=== PATIENT | female | born 1985 | race Caucasian/White ===

== ENCOUNTER 2016-06-28 22:21 | Emergency (ER) | payer SELFPAY ==
[~2016-06-28] VITALS: Ht 167.6 cm; Wt 95.5 kg
[2016-06-28 22:26] VITALS: Ht 167.6 cm; Wt 95.5 kg
--- NOTE | 2016-06-29 01:56 | RADRPT ---
PROCEDURE: XR Chest. CLINICAL INDICATION: Fever and cough. TECHNIQUE: Single frontal chest x-ray. COMPARISON: None. FINDINGS: The cardiomediastinal silhouette is unremarkable. The lungs are clear. No focal infiltrate is seen. There is no pleural effusion. There is no pneumothorax. The osseous structures are unremarkable. IMPRESSION: 1. No active disease. RPTAT: HMVK .Kyaw Macario MD, MD Date Time Electronically viewed and signed by .Kyaw Macario MD, on 06/29/2016 01:56 .K/
[2016-06-29] MEDS ORDERED: IBUP-1542 PO (02:10)
[2016-06-29] MEDS ORDERED: ALBU8.5H3 INH (02:11)
[2016-06-29] MEDS ORDERED: AZIT250T94 PO (02:16)
[2016-06-29] MEDS ORDERED: BENZ100C70 PO (02:16)
--- NOTE | 2016-06-29 04:25 | ERD ---
ER Documentation Chief Complaint Date/Time DATE: 06/29/16 TIME: 04:17 Chief Complaint cough and congestion x1 day HPI Patient is a 31-year-old female past medical history of pneumonia who presents to the emergency department with a cough and nasal congestion 3 days. Patient states that her cough is productive in nature with yellow phlegm production. Patient denies any fevers but does report chills. Patient states that she has nasal congestion and rhinorrhea. Patient denies any chest pain or shortness of breath. Patient states she also has some clear watery eyes. Patient denies any abdominal pain, nausea, vomiting, diarrhea. Patient has been taking Benadryl for symptoms with minimal alleviation. Patient denies receiving the flu vaccine this year. Patient denies any throat pain, ear pain, headaches or loss of consciousness. No recent travel. No sick contacts. ROS All systems reviewed and are negative except as per history of present illness. Medications Home Meds Active Scripts Benzonatate* (Tessalon Perle*) 100 Mg Capsule, 100 MG PO Q8H Y for COUGH, #30 CAP Prov:ANETA FOWLER PA-C 06/29/16 Azithromycin* (Zithromax*) 250 Mg Tablet, 250 MG PO .ZPACK DIRECTED, #6 TAB TAKE 500 MG (2 TABS) THE FIRST DAY THEN 250 MG (1 TAB) DAYS 2-5 Prov:ANETA FOWLER PA-C 06/29/16 Albuterol Sulfate* (Proair HFA*) 8.5 Gm Hfa.aer.ad, 2 PUFF INH Q4H Y for WHEEZING AND SOB, #1 INHALER Prov:ANETA FOWLER PA-C 06/29/16 Ibuprofen* (Motrin*) 600 Mg Tab, 600 MG PO Q6, #30 TAB Prov:ANETA FOWLER PA-C 06/29/16 Allergies Allergies: Coded Allergies: diphenhydramine (Verified Allergy, Intermediate, increased itching, ) Uncoded Allergies: NSAIDS (Allergy, Unknown, 06/28/16) PMhx/Soc History of Surgery: Yes (sinus sx as a child) Anesthesia Reaction: No Hx Neurological Disorder: No Hx Respiratory Disorders: No Hx Cardiac Disorders: No Hx Psychiatric Problems: No Hx Miscellaneous Medical Probl: Yes ("prediabetic") Hx Alcohol Use: Yes (occasional) Hx Substance Use: No Hx Tobacco Use: No FmHx Family History: No diabetes Physical Exam Vitals Vital Signs Date Time Temp Pulse Resp B/P Pulse Ox O2 Delivery O2 Flow Rate FiO2 06/28/16 22:26 98.7 107 22 118/76 98 Physical Exam GENERAL: Well-developed, well-nourished female. Appears in no acute distress. No abdominal retractions, no nasal flaring, no tripoding. Patient is speaking in full sentences. HEAD: Normocephalic, atraumatic. No deformities or ecchymosis. EYE: Pupils equal, round, and reactive to light. EOMs intact. No conjunctival erythema. No eye discharge. ENT: External ear without any masses or tenderness. Auditory canals clear bilaterally. TM visualized bilaterally, non-erythematous, non-bulging. Nasal mucosa pink with no discharge. Oropharynx is pink without any tonsillar erythema or exudates. No uvula deviation. No kissing tonsils. NECK: Supple. No meningismus. Normal ROM of the neck. LUNG: Clear to auscultation bilaterally. No rhonchi, wheezing, rales or coarse breath sounds. HEART: Regular rate and rhythm. No murmurs, rubs or gallops. BACK: No midline tenderness. EXTREMITES: Equal pulses bilaterally. No peripheral clubbing, cyanosis or edema. No unilateral leg swelling. NEUROLOGIC: Alert and oriented to person, place and time. Moving all four extremities. 5/5 strength in all extremities. Normal speech. Steady gait. Negative Brudzinski sign sign. Negative Kernig sign. SKIN: Normal color. Warm and dry. No rashes or lesions. Procedures/MDM ED COURSE: The patient was stable throughout ED course. I kept the patient and/or family informed of laboratory and diagnostic imaging results throughout the ED course. DIAGNOSTIC IMAGING: Read by radiologist. DIAGNOSTIC IMAGING REPORT Patient: LISA LINDA : 1985 Age: 31 Sex: F [id number] DOS: 06/29/16 0052 Ordering MD: ANETA FOWLER PA-C Location: FTE Room/Bed: PROCEDURE: XR Chest. CLINICAL INDICATION: Fever and cough. TECHNIQUE: Single frontal chest x-ray. COMPARISON: None. FINDINGS: The cardiomediastinal silhouette is unremarkable. The lungs are clear. No focal infiltrate is seen. There is no pleural effusion. There is no pneumothorax. The osseous structures are unremarkable. IMPRESSION: 1. No active disease. RPTAT: HMVK .Kyaw Macario MD, MD Date Time Electronically viewed and signed by .Kyaw Macario MD, on 06/29/2016 01:56 .K/ CC: ANETA FOWLER PA-C MEDICAL DECISION MAKING: This is a 31-year-old female past medical history of pneumonia who presents with cough and nasal congestion 3 days. Vital signs were reviewed. Patient was afebrile. Patient was not hypoxic. ENT exam was normal. Lung Exam was normal. Chest x-ray was unremarkable. Given these findings, the patient's presentation is most consistent with viral URI. I have a much lower clinical concern for bacterial infections including pneumonia, meningitis, sinusitis, otitis externa , acute otitis media, strep pharyngitis, epiglottitis or peritonsillar abscess. Patient requested a prescription of antibiotics given that her "colds often turn into bronchitis or pneumonia." Rise the patient at this time I will provide her with a prescription of Z-Omi however I will be writing on the Z-Omi not to be filled for at least 4 days. Patient may only fill Z-Omi after 2016. Patient understands and is agreeable with this plan. PRESCRIPTIONS: Ibuprofen, Z-Omi, Tessalon Perles, albuterol inhaler. DISCHARGE: At this time, patient is stable for discharge and outpatient management. Supportive therapies such as OTC throat lozenges, salt water gurgles, popsicles and jello discussed. I have instructed the patient to follow-up with his/her primary care physician in 1-2 days. I have instructed the patient to promptly return to the ER for any new or worsening symptoms including increased pain, swelling, fever, nausea, vomiting, weakness or difficulty breathing. The patient and/or family expressed understanding of and agreement with this plan. All questions were answered. Home care instructions were provided. Departure Diagnosis: Primary Impression: Viral URI Condition: Stable Patient Instructions: Uri, Viral, No Abx (Adult) Referrals: [facility] YOU HAVE RECEIVED A MEDICAL SCREENING EXAM AND THE RESULTS INDICATE THAT YOU DO NOT HAVE A CONDITION THAT REQUIRES URGENT TREATMENT IN THE EMERGENCY DEPARTMENT. FURTHER EVALUATION AND TREATMENT OF YOUR CONDITION CAN WAIT UNTIL YOU ARE SEEN IN YOUR DOCTORS OFFICE WITHIN THE NEXT 1-2 DAYS. IT IS YOUR RESPONSIBILITY TO MAKE AN APPOINTMENT FOR FOLOW-UP CARE. IF YOU HAVE A PRIMARY DOCTOR --you should call your primary doctor and schedule an appointment IF YOU DO NOT HAVE A PRIMARY DOCTOR YOU CAN CALL OUR PHYSICIAN REFERRAL HOTLINE AT IF YOU CAN NOT AFFORD TO SEE A PHYSICIAN YOU CAN CHOSE FROM THE FOLLOWING [facility] [address] [facility]. [facility] [address] [facility] [address] [facility] [address] [facility] [address] [facility]. [facility] [address] [facility]. [facility] YOU HAVE RECEIVED A MEDICAL SCREENING EXAM AND THE RESULTS INDICATE THAT YOU DO NOT HAVE A CONDITION THAT REQUIRES URGENT TREATMENT IN THE EMERGENCY DEPARTMENT. FURTHER EVALUATION AND TREATMENT OF YOUR CONDITION CAN WAIT UNTIL YOU ARE SEEN IN YOUR DOCTORS OFFICE WITHIN THE NEXT 1-2 DAYS. IT IS YOUR RESPONSIBILITY TO MAKE AN APPOINTMENT FOR FOLOW-UP CARE. IF YOU HAVE A PRIMARY DOCTOR --you should call your primary doctor and schedule and appointment IF YOU DO NOT HAVE A PRIMARY DOCTOR YOU CAN CALL OUR PHYSICIAN REFERRAL HOTLINE AT . IF YOU CAN NOT AFFORD TO SEE A PHYSICIAN YOU CAN CHOSE FROM THE FOLLOWING [facility] INSTITUTIONS: [facility] [address] [place] [address] [facility] [address] [place] [address] [facility] [address] [place] [address] Additional Instructions: Call your primary care doctor TOMORROW for an appointment during the next 1-2 days.See the doctor sooner or return here if your condition worsens before your appointment time. Patient advised to only fill antibiotics prescription after at least 3 days if symptoms persist. Comments At approximately 4 AM on 06/29/16, it was noted the patient was prescribed ibuprofen despite having a NSAIDs allergy. She was attempted to be called however patient did not provide contact phone number. If patient returns to the ED, Patient will be advised to discontinue any ibuprofen prescribed. ANETA FOWLER PA-C Jun 29, 2016 04:25
== END 2016-06-29 02:35 | disposition home or self-care (01) ==
LOC: FTE 22:21
DX: J06.9 Acute upper respiratory infection, unspecified (principal)
CPT/HCPCS: 71010

== ENCOUNTER 2018-04-11 10:38 | Emergency (ER) | payer BC, OTHER ==
[~2018-04-11] VITALS: Ht 162.6 cm; Wt 75.0 kg
[~2018-04-11 10:38] MED LIST: ALBU8.5H8 INH; AZIT250T PO; BENZ-6 PO; IBUP-1542 PO
[2018-04-11 10:45] VITALS: Ht 162.6 cm; Wt 75.0 kg
[2018-04-11] MEDS ORDERED: KETOROLAC 15 MG INJ IV STA (11:01)
[2018-04-11] MEDS ORDERED: SOD CHLORIDE 0.9% 1,000 ML IV STA (11:01)
[2018-04-11] MEDS ORDERED: ONDANSETRON 4 MG INJ IV STA (11:01)
[2018-04-11] MEDS ORDERED: ASPIRIN 81 MG TAB PO STA (11:44)
[2018-04-11] MEDS ORDERED: IOHEXOL 100 ML ONE (11:46)
[2018-04-11] MEDS ORDERED: SOD CHLORIDE 0.9% 100 ML ONE (11:46)
[2018-04-11] MEDS ORDERED: IODIXANOL LOCM 100 ML BTL ONE (11:47)
--- NOTE | 2018-04-11 11:52 | ERD ---
ER Documentation Chief Complaint Chief Complaint left sided numbness, no weakness noted HPI This is a 32-year-old woman initially triaged as having left-sided paresthesias beginning at work. She also states she felt dizzy and lightheaded and also felt paresthesias to the right face and weakness in the right face, although she stat es her boss witnessed the entire episode and states he denied that she had facial droop despite the sensation she had. She denies weakness in her arms or legs, no loss of consciousness, no complaints of chest pain or shortness of breath. During HPI she denied prior symptoms although it seems she does have a history of migraines and her who is at the bedside states she has had paresthesias in the past. ROS All systems reviewed and are negative except as per history of present illness. Medications Home Meds Discontinued Scripts Benzonatate* (Tessalon Perle*) 100 Mg Capsule, 100 MG PO Q8H PRN for COUGH, #30 CAP Prov:ANETA FOWLER PA-C 06/29/16 Azithromycin* (Zithromax*) 250 Mg Tablet, 250 MG PO .ZPACK DIRECTED, #6 TAB TAKE 500 MG (2 TABS) THE FIRST DAY THEN 250 MG (1 TAB) DAYS 2-5 Prov:ANETA FOWLER PA-C 06/29/16 Albuterol Sulfate* (Proair HFA*) 8.5 Gm Hfa.aer.ad, 2 PUFF INH Q4H PRN for WHEEZING AND SOB, #1 INHALER Prov:ANETA FOWLER PA-C 06/29/16 Ibuprofen* (Motrin*) 600 Mg Tab, 600 MG PO Q6, #30 TAB Prov:ANETA FOWLER PA-C 06/29/16 Allergies Allergies: Coded Allergies: diphenhydramine (Verified Allergy, Intermediate, increased itching, 06/29/16) Uncoded Allergies: NSAIDS (Allergy, Unknown, 06/28/16) PMhx/Soc Obesity, migraine headaches History of Surgery: Yes (sinus sx as a child) Anesthesia Reaction: No Hx Neurological Disorder: No Hx Respiratory Disorders: No Hx Cardiac Disorders: No Hx Psychiatric Problems: No Hx Miscellaneous Medical Probl: Yes ("prediabetic") Hx Alcohol Use: Yes (occasional) Hx Substance Use: No Hx Tobacco Use: No Smoking Status: Never smoker FmHx Family History: No diabetes Physical Exam Vitals Vital Signs Date Temp Pulse Resp B/P (MAP) Pulse Ox O2 O2 Flow FiO2 Time Delivery Rate 04/11/18 97.6 80 18 114/78 100 Room Air 15:00 (90) 04/11/18 78 18 117/80 100 Room Air 12:26 (92) 04/11/18 76 18 122/85 100 Room Air 11:30 (97) 04/11/18 98.0 74 18 127/92 100 10:45 (104) Physical Exam GENERAL: Well-developed, well-nourished, well-hydrated, in no apparent distress, looks nontoxic in appearance HEENT: Moist mucous membranes, pink conjunctiva, no cervical spine tenderness or step-off deformities, no goiter, no jaundice or icterus, extraocular movements intact without pain. No submandibular induration, and no pharyngeal erythema NEURO: Alert and oriented 3, cranial nerves II through XII intact bilaterally, pupils equal round reactive to light, left hand community coordinator for [employer] strength 4/5 compared to 5/5 on the right, positive pronator drift on the left CARDIAC: Regular rate and rhythm, no murmurs rubs or gallops LUNGS: Clear bilaterally no wheezing crackles or stridor ABDOMEN: Soft nontender, no guarding, no rigidity, no rebound, no psoas sign no obturator sign. Normoactive bowel sounds SKIN: Warm and dry to touch, no abrasions, contusions, or hematomas, no lacerations, no ecchymosis, no target lesions, and without ulcers EXTREMITIES: No clubbing cyanosis or edema, calves are bilaterally symmetrical, no Homans sign, no popliteal cord sign. Distal pulses equal and bilateral PSYCH: Normal affect without agitation or irritability Result Diagram: 04/11/18 1111 04/11/18 1111 Results 24 hrs Laboratory Tests Test 04/11/18 11:10 04/11/18 11:11 04/11/18 11:21 Hemoglobin A1c 5.5 % Ethyl Alcohol Level < 10.0 mg/dl White Blood Count 6.3 10^3/ul Red Blood Count 4.31 10^6/ul Hemoglobin 13.4 g/dl Hematocrit 39.4 % Mean Corpuscular Volume 91.4 fl Mean Corpuscular Hemoglobin 31.1 pg Mean Corpuscular 34.0 g/dl Hemoglobin Concent Red Cell Distribution Width 11.6 % Platelet Count 225 10^3/UL Mean Platelet Volume 9.9 fl Immature Granulocytes % 0.200 % Neutrophils % 52.0 % Lymphocytes % 41.1 % Monocytes % 5.5 % Eosinophils % 0.6 % Basophils % 0.6 % Nucleated Red Blood Cells % 0.0 /100WBC Immature Granulocytes # 0.010 10^3/ul Neutrophils # 3.3 10^3/ul Lymphocytes # 2.6 10^3/ul Monocytes # 0.4 10^3/ul Eosinophils # 0.0 10^3/ul Basophils # 0.0 10^3/ul Nucleated Red Blood Cells # 0.0 10^3/ul Urine Color STRAW Urine Clarity CLEAR Urine pH 6.0 Urine Specific [place] 1.010 Urine Ketones NEGATIVE mg/dL Urine Nitrite NEGATIVE mg/dL Urine Bilirubin NEGATIVE mg/dL Urine Urobilinogen NEGATIVE mg/dL Urine Leukocyte Esterase NEGATIVE Amber/ul Urine Hemoglobin NEGATIVE mg/dL Urine Glucose NEGATIVE mg/dL Urine Total Protein NEGATIVE mg/dl Sodium Level 136 mmol/L Potassium Level 3.9 mmol/L Chloride Level 103 mmol/L Carbon Dioxide Level 24 mmol/L Anion Gap 9 Blood Urea Nitrogen 13 mg/dl Creatinine 0.48 mg/dl Est Glomerular Filtrat > 60 mL/min Rate mL/min Glucose Level 129 mg/dl Calcium Level 9.1 mg/dl Total Bilirubin 0.4 mg/dl Direct Bilirubin 0.00 mg/dl Indirect Bilirubin 0.4 mg/dl Aspartate Amino Transf (AST/SGOT) 17 IU/L Alanine 18 IU/L Aminotransferase (ALT/SGPT) Alkaline Phosphatase 87 IU/L Total Protein 7.1 g/dl Albumin 3.9 g/dl Globulin 3.20 g/dl Albumin/Globulin Ratio 1.21 Lipase 56 U/L Urine Opiates Screen NEGATIVE Urine Barbiturates NEGATIVE Urine Amphetamines Screen NEGATIVE Urine Benzodiazepines Screen NEGATIVE Urine Cocaine Screen NEGATIVE Urine Cannabinoids NEGATIVE POC Beta HCG, Qualitative NEGATIVE Current Medications Medications Dose Sig/Solis Start Time Status Last (Trade) Ordered Route PRN Stop Time Admin Dose Reason Admin Sodium 1,000 ml @ Q1H STAT 04/11/18 DC 04/11/18 Chloride 1,000 mls/hr IV 11:01 11:37 04/11/18 12:00 Ondansetron 4 mg ONCE STAT 04/11/18 DC 04/11/18 HCl (Zofran IV 11:01 11:37 Inj) 04/11/18 11:02 Ketorolac 15 mg ONCE STAT 04/11/18 DC Tromethamine IV 11:01 (Toradol) 04/11/18 11:02 Aspirin 324 mg ONCE STAT 04/11/18 DC 04/11/18 (Aspirin) PO 11:44 12:45 04/11/18 11:47 IV Flush 10 ml STK-MED 04/11/18 DC 04/11/18 (NS 10 ml) ONCE .ROUTE 11:46 11:57 04/11/18 11:47 Sodium 100 ml @ ud STK-MED 04/11/18 DC 04/11/18 Chloride ONCE .ROUTE 11:46 11:57 04/11/18 11:47 Iohexol 100 ml @ ud STK-MED 04/11/18 DC ONCE .ROUTE 11:46 04/11/18 11:47 Iodixanol 100 ml STK-MED 04/11/18 DC 04/11/18 (Visipaque ONCE .ROUTE 11:47 11:57 Locm) 04/11/18 11:48 Magnesium 50 ml @ 25 ONCE ONCE 04/11/18 DC 04/11/18 Sulfate mls/hr IVPB 12:30 12:43 04/11/18 14:29 6 mg ONCE ONCE 04/11/18 DC 04/11/18 Dexamethasone IV 12:30 12:43 (Decadron) 04/11/18 12:32 10 mg ONCE ONCE 04/11/18 DC 04/11/18 Prochlorperaz IV 12:30 12:43 ine 04/11/18 12:32 (Compazine Inj) Valproate 110 ml @ ONCE ONCE 04/11/18 DC Sodium 1000 110 mls/hr IVPB 12:30 mg/Dextrose 04/11/18 13:29 IV Flush 3 ml PER 04/11/18 DC (NS 3 ml) PROTOCOL IV 14:30 04/11/18 15:46 Lorazepam 0.5 mg Q6H PRN 04/11/18 DC (Ativan) PO anxiety 14:30 04/11/18 15:46 Ondansetron 4 mg Q6H PRN 04/11/18 DC HCl (Zofran IV nausea 14:30 Inj) 04/11/18 15:46 650 mg Q6H PRN 04/11/18 DC Acetaminophen PO pain 1-3, 14:30 (Tylenol fever 04/11/18 15:46 Tab) Enoxaparin 40 mg DAILY SC 04/12/18 DC Sodium 09:00 (Lovenox) 04/12/18 09:00 Ketorolac 30 mg Q6H PRN 04/11/18 DC Tromethamine IV PAIN 14:30 (Toradol) LEVEL 1-3 04/11/18 14:32 Ketorolac 15 mg Q6H PRN 04/11/18 DC Tromethamine IV PAIN 20:30 (Toradol) LEVEL 1-3 04/11/18 20:30 Procedures/MDM IV line was established patient was placed on feed in worker rhythm strip revealed a sinus rhythm at about 80 bpm with upright P and T waves. Patient was afebrile. Blood sugar was normal and test was negative I administered 1 L normal saline IV and Zofran 4 mg IV x1 for dizziness I called code stroke, tele-neurology was contacted. They recommended against immediate TPA and instead opted to observe the patient and treat for complex migraine, TPA decision will be made before the 4.5-hour window EKG was performed, read by me reveals normal sinus rhythm at 60 bpm, normal axis, narrow QRS complex, no concerning ST elevations or depressions noted One AP view of the chest performed, read by me reveals no acute infiltrates, normal mediastinum, sharp costophrenic and cardiac borders, no air under the diaphragm. Otherwise unremarkable chest x-ray. CT scan of the brain without contrast was performed, no acute bleed mass or shift CTA brain was performed and CTA neck. No large vessel occlusion was noted CBC and electrolytes were normal, liver function tests were normal, troponin was negative, test was negative, urinalysis was negative for infection. Critical Care: Time: 43 minutes, this was time separate from other billable procedures. Treatments/Evaluations: Close monitoring and treatment of unstable vital signs, cardiorespiratory, and neurologic status, while maintaining tight balance of fluid, respiratory, and cardiac interventions. Tele-neurologist recommended migraine cocktail therapy including intravenous valproic acid, magnesium sulfate 2 g IV, prochlorperazine 10 mg IV, and dexamethasone 6 mg IV x1. Approximately 1 hour after the migraine cocktail p atient's symptoms improved and it was determined the risks of TPA outweigh the benefits, and neurologist recommended against TPA. Patient also stated she felt much better. Patient admitted to telemetry setting for continued medical management and for further neuro imaging and neurology consultation. Departure Diagnosis: Primary Impression: Paresthesias Additional Impressions: Migraine Migraine type: hemiplegic Status migrainosus presence: with status migrainosus Intractability: intractable Qualified Codes: G43.411 - Hemiplegic migraine, intractable, with status migrainosus Stroke CVA mechanism: unspecified Qualified Codes: I63.9 - Cerebral infarction, unspecified Condition: SANA Landa MD Apr 11, 2018 11:48
[2018-04-11] MEDS ORDERED: MAGNESIUM SULFATE 2 GM/50 ML 50 ML IVPB ONE (12:30)
[2018-04-11] MEDS ORDERED: PROCHLORPERAZINE 10 MG INJ IV ONE (12:30)
[2018-04-11] MEDS ORDERED: DEXAMETHASONE 4 MG/ML 1 ML INJ IV ONE (12:30)
[2018-04-11] MEDS: VALPROATE INJ 1,000 MG in DEXTROSE 5% 100 ML IVPB ONE ×2 (13:13→13:23)
--- NOTE | 2018-04-11 13:35 | STROKE ---
Date/Time of Note Date/Time of Note DATE: 04/11/18 TIME: 14:03 Patient Information General Patient location: emergency Arrival Date Onset Date: Apr 11, 2018 Onset Time: 10:00 Age 32 Gender female Weight 75 kg Vital Signs Vital Signs Vital Signs Date Temp Pulse Resp B/P (MAP) Pulse Ox O2 O2 Flow FiO2 Time Delivery Rate 04/11/18 98.0 74 18 127/92 100 10:45 (104) Patient History Current Medications Allergies: Coded Allergies: diphenhydramine (Verified Allergy, Intermediate, increased itching, 06/29/16) Uncoded Allergies: NSAIDS (Allergy, Unknown, 06/28/16) History & Physical History of Present Illness 22yo woman h/o migraines with aura consulted for stroke. Onset 1000am PST. At work, numbness on left side of body and feeling of burning and swelling of right side of face. Also felt electricity from top of head to bottom of her feet. +nausea. No significant headache. Migraines have been less frequent, 2-3 weeks apart. Has had numbness with migraines in past, involving either RUE or LUE to sometimes to legs. Slight tingling of face before. [place] in tongue. Mild weakness as well. NIH Stroke Scale NIH Stroke Scale [id number] l4d LOC Questions: Qpajd0n LOC Commands: Gmsfa7e t Gaze: Ytnoe2w Anurn0t alsy: Creuk6s rm - Left: Uozrm8y ight: Kixrs3z eft: Rwxsk1f Motor Leg - Right: Dnebf2q Ysqqd5s est Language: Swalf0s valerie: Reosf5c Mzhgn0w 4Bd Total Score: Gensz8x Date/Time Recorded DATE: 04/11/18 TIME: 14:03 Submitted By Samantha Wood t-PA Imaging Review Date/Time Imaging Reviewed DATE: 04/11/18 TIME: 14:03 t-PA Administration Weight 75 kg Recommedation submitted by Samantha Wood Recommendations Recommendation Given h/o migraines with aura, along with paresthesias noted on today's presentation, suspect migraine with persistent aura contributing to patient's symptoms. Other consideration is stroke. Head CT and CTA head and neck without any significant acute abnormality. Discussed with patient about trialing migraine cocktail. Also discussed about tPA, indication to treat acute ischemic strokes by breaking down clot, benefit in terms of improving function, and risk of bleeding including risk of from bleeding in the brain. Patient elects to see how she responds first to the migraine cocktail given that she says her symptoms are improving, namely the burning sensation in right side of face. If no significant improvement however, will consider administration of tPA at that time. Discussed impression with SAMANTHA Cheng Apr 11, 2018 12:13
[2018-04-11] MEDS ORDERED: ACETAMINOPHEN 325 MG TAB PO PRN (14:30)
[2018-04-11] MEDS ORDERED: KETOROLAC 30 MG INJ IV PRN ×2 (14:30→20:30)
[2018-04-11] MEDS ORDERED: LORAZEPAM 0.5 MG TAB PO PRN (14:30)
[2018-04-11] MEDS ORDERED: NACL 0.9% 3 ML SYG IV SCH (14:30)
[2018-04-11] MEDS ORDERED: ONDANSETRON 4 MG INJ IV PRN (14:30)
--- NOTE | 2018-04-11 14:30 | HP ---
Date/Time of Note Date/Time of Note DATE: 04/11/18 TIME: 14:30 Assessment/Plan VTE Prophylaxis SCD applied (from Nsg): Yes Pharmacological prophylaxis: NA/contraindicated Pharm contraindication: low risk/ambulating Lines/Catheters IV Catheter Type (from Nrsg): Saline Lock Assessment/Plan Assessment/Plan 1. Acute paraesthesia, ?complex migraine - per Teleneuro, possibly complex migraine and given abortive therapy with relief - refuse Valproate given currently - CT head and CTA results noted without any acute abnormalities - Neurology consultation placed for further recommendations - CTA neck take as well but results pending 2. h/o migraine with aura - followed by PCP who she states is recommending follow up with Neurology since no longer 3. Diet - regular 4. Code status - full 5. DVT ppx - SCD 6. Disposition - Admit to telemetry for observation and workup of paraesthesia Result Diagram: 04/11/18 1111 04/11/18 1111 Results 24hrs Laboratory Tests Test 04/11/18 11:10 04/11/18 11:11 04/11/18 11:21 Hemoglobin A1c 5.5 Ethyl Alcohol Level < 10.0 H White Blood Count 6.3 Red Blood Count 4.31 Hemoglobin 13.4 Hematocrit 39.4 Mean Corpuscular Volume 91.4 Mean Corpuscular Hemoglobin 31.1 Mean Corpuscular Hemoglobin Concent 34.0 Red Cell Distribution Width 11.6 Platelet Count 225 Mean Platelet Volume 9.9 Immature Granulocytes % 0.200 Neutrophils % 52.0 Lymphocytes % 41.1 Monocytes % 5.5 Eosinophils % 0.6 Basophils % 0.6 Nucleated Red Blood Cells % 0.0 Immature Granulocytes # 0.010 Neutrophils # 3.3 Lymphocytes # 2.6 Monocytes # 0.4 Eosinophils # 0.0 Basophils # 0.0 Nucleated Red Blood Cells # 0.0 Urine Color STRAW Urine Clarity CLEAR Urine pH 6.0 Urine Specific [place] 1.010 Urine Ketones NEGATIVE Urine Nitrite NEGATIVE Urine Bilirubin NEGATIVE Urine Urobilinogen NEGATIVE Urine Leukocyte Esterase NEGATIVE Urine Hemoglobin NEGATIVE Urine Glucose NEGATIVE Urine Total Protein NEGATIVE Sodium Level 136 Potassium Level 3.9 Chloride Level 103 Carbon Dioxide Level 24 Anion Gap 9 Blood Urea Nitrogen 13 Creatinine 0.48 Est Glomerular Filtrat Rate mL/min > 60 Glucose Level 129 Calcium Level 9.1 Total Bilirubin 0.4 Direct Bilirubin 0.00 Indirect Bilirubin 0.4 Aspartate Amino Transf (AST/SGOT) 17 Alanine Aminotransferase (ALT/SGPT) 18 Alkaline Phosphatase 87 Total Protein 7.1 Albumin 3.9 Globulin 3.20 Albumin/Globulin Ratio 1.21 Lipase 56 Urine Opiates Screen NEGATIVE Urine Barbiturates NEGATIVE Urine Amphetamines Screen NEGATIVE Urine Benzodiazepines Screen NEGATIVE Urine Cocaine Screen NEGATIVE Urine Cannabinoids NEGATIVE POC Beta HCG, Qualitative NEGATIVE HPI/ROS Admit Date/Time Admit Date/Time 04/11/17 at 1400 Hx of Present Illness 32 yo F with PMH migraines with auras presented to ED after experiencing numbness of left upper and lower extremity as well as face. Patient states it started this am at school and lasted about 20 minutes. She admits to associated dizziness, nausea, and lightheadedness but denies any headaches, LOC, diminished strength, or shortness of breath. Upon arrival to ED, code stroke was called and patient was evaluated by teleneuro. She was dx with complex migraines and given abortive therapy which was effective. However, recommendations for tPA were made if no improvement in symptoms. Patient had CTA head performed that was negative for acute issues. She admits to last migraine was prior to of her child in November 2017. ROS All 12 systems reviewed and pertinent positives as per HPI. All others negative. Constitutional: nausea; No fatigue Eyes: No discharge ENT: No congestion Respiratory: No cough, No shortness of breath, No sputum, No wheezing Cardiovascular: lightheadedness; No chest pain, No edema, No palpitations Gastrointestinal: nausea; No constipation, No decreased appetite, No vomiting Genitourinary: no complaints Musculoskeletal: no complaints Neurologic: dizziness; No focal-weakness, No headache, No seizure Endocrine: no complaints Lymphatic: no complaints Psychological: nl mood/affect Immunologic: no complaints PMH/Family/Social Past Medical History Medical History: other (migraines with aura) Medications Current Medications Magnesium Sulfate 50 ml @ 25 mls/hr ONCE ONCE IVPB Last administered on 04/11/18at 12:43; Admin Dose 25 MLS/HR; Start 04/11/18 at 12:30; Stop 04/11/18 at 14:29 Coded Allergies: diphenhydramine (Verified Allergy, Intermediate, increased itching, 7) Uncoded Allergies: NSAIDS (Allergy, Unknown, 06/28/16) Past Surgical History Past Surgical Hx: no surgical history Family History Significant Family History: no pertinent family hx Social History Alcohol Use: none Smoking Status: Never smoker Drug Use: none Exam/Review of Systems Vital Signs Vitals Vital Signs Date Temp Pulse Resp B/P (MAP) Pulse Ox O2 O2 Flow FiO2 Time Delivery Rate 04/11/18 78 18 117/80 100 Room Air 12:26 (92) 04/11/18 98.0 10:45 Exam Exam General: Patient is laying in bed, no acute distress. answering questions appropriately Mentation: Patient is alert and oriented x4 Head: Normocephalic atraumatic Eyes: EOMI, pupils reactive to light Neck: Supple, nontender, midline Respiratory: Clear to auscultation bilaterally. no wheezing or rhonchi Cardiovascular: regular rate and rhythm, no obvious murmurs Gastrointestinal: soft, nontender to palpation, nondistended, bowel sounds heard. no rebound or guarding Neurological: Moves all extremities spontaneously. no focal deficits appreciated. sensation and motor intact Skin: No new skin lesions Additional Comments no home medications imaging: PROCEDURE: CT Brain without contrast. CLINICAL INDICATION: Stroke TECHNIQUE: CT scan of the brain was performed on a multidetector high- resolution CT scan. Axial imaging was obtained of the brain without contrast ad ministration. Coronal and sagittal reformatted images were obtained from the axial source images. Standard CT scan of the head without contrast protocols were performed. The total exam CTDI equals 48.06 mGy and the total exam DLP equals 832.04 mGy- cm. One or more of the following dose reduction techniques were used: - Automated exposure control. - Adjustment of the mA and/or kV according to patient size. Use of iterative reconstruction technique. Dicom images are available COMPARISON: None. FINDINGS: The ventricular system and peripheral CSF spaces are unremarkable. No evidence of intracranial masses hemorrhages or midline shift. The pak-white matter differentiation is unremarkable. In the lateral inferior right occipital lobe is a 3 mm calcification consistent with previous inflammatory disease such as cysticercosis. The bones of the calvarium are intact. Visualized paranasal sinuses and mastoids are unremarkable. IMPRESSION: 1. No evidence of intracranial masses hemorrhages or midline shift. 2. 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 Addendum: Dr. Calvillo was telephoned this results on 04/11/2097 and 1200 hours. RPTAT:AAJJ Physician Cullen Date Time Electronically viewed and signed by Physician Cullen on 04/11/2018 12:10 PROCEDURE: XR Chest. CLINICAL INDICATION: Stroke symptoms TECHNIQUE: A single AP view of the chest was obtained. COMPARISON: CHEST 06/29/2016 FINDINGS: No focal airspace opacification, pleural effusion or pneumothorax is seen. The cardiomediastinal silhouette is within normal limits for size. The osseous stru ctures are unremarkable. IMPRESSION: Unremarkable chest x-ray. RPTAT: HH .Ursula Cardenas MD, MD Date Time Electronically viewed and signed by .Ursula Cardenas MD, MD on 04/11/2018 12:42 PROCEDURE: CT angiogram brain and neck CLINICAL INDICATION: Code stroke. Neurologic deficit. TECHNIQUE: CT angiogram of the brain, and neck was performed on a multidetector CT scanner. The study was reviewed on a [employer] PACS/3D workstation with 3D- MIP reformations. 100 cc Visipaque 320 intravenous contrast were administered. One or more of the following dose reduction techniques were used: Automated exposure control, adjustment in mA and / or kV according to patient size, use of iterative reconstructive technique. CTDIvol = 17 mGy and DLP = 6/42 mGy-cm. DICOM images are available. COMPARISON: CT brain same date FINDINGS: CT ANGIOGRAM NECK: The origins of the great vessels arising off of the aortic arch are patent. The bilateral common carotid arteries are patent. The bilateral carotid bulbs - bifurcations and internal carotid arteries are patent, without stenosis by NASCET criteria identified. The bilateral vertebral arteries are patent with dominant right vertebral artery noted. No dissection is identified. CT ANGIOGRAM BRAIN: The bilateral internal carotid arteries are patent. The bilateral middle and anterior cerebral arteries appear patent. The bilateral posterior cerebral arteries appear patent with origins noted bilaterally. The basilar artery is small on an anatomic basis but appears patent. The bilateral vertebral arteries appear patent with left vertebral artery primarily terminating as the left posterior inferior cerebellar artery. No aneurysm or ar teriovenous malformation is identified. IMPRESSION: No cervical or major vessel intracranial arterial occlusion/stenosis identified. Critical results called to Dr. Calvillo at 12:28 p.m., 04/11/2018. RPTAT: VV .Dale Layton MD, MD Date Time Electronically viewed and signed by .Dale Layton MD, MD on 04/11/2018 12:30 HOLLI SALAZAR MD Apr 11, 2018 14:30
[2018-04-11 15:00] VITALS: BP 114/78; PULSE 80; RESP 18
--- NOTE | 2018-04-11 18:08 | DS ---
Date/Time of Note Date/Time of Note DATE: 04/11/18 TIME: 18:04 Discharge Summary Admission/Discharge Info Admit Date/Time 04/11/18 1400 Discharge Date/Time 04/11/18 1530 Discharge Diagnosis 1. Complex migraine with hemiparesthesia 2. Migraines with aura Patient Condition: Stable Consults Neurology- Dr. Johansen Procedures PROCEDURE: CT Brain without contrast. CLINICAL INDICATION: Stroke TECHNIQUE: CT scan of the brain was performed on a multidetector high- resolution CT scan. Axial imaging was obtained of the brain without contrast administration. Coronal and sagittal reformatted images were obtained from the axial source images. Standard CT scan of the head without contrast protocols were performed. The total exam CTDI equals 48.06 mGy and the total exam DLP equals 832.04 mGy- cm. One or more of the following dose reduction techniques were used: - Automated exposure control. - Adjustment of the mA and/or kV according to patient size. Use of iterative reconstruction technique. Dicom images are available COMPARISON: None. FINDINGS: The ventricular system and peripheral CSF spaces are unremarkable. No evidence of intracranial masses hemorrhages or midline shift. The pak-white matter differentiation is unremarkable. In the lateral inferior right occipital lobe is a 3 mm calcification consistent with previous inflammatory disease such as cysticercosis. The bones of the calvarium are intact. Visualized paranasal sinuses and mastoids are unremarkable. IMPRESSION: 1. No evidence of intracranial masses hemorrhages or midline shift. 2. 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 Addendum: Dr. Calvillo was telephoned this results on 04/11/2097 and 1200 hours. RPTAT:AAJJ Physician Cullen Date Time Electronically viewed and signed by Physician Cullen on 04/11/2018 12:10 PROCEDURE: XR Chest. CLINICAL INDICATION: Stroke symptoms TECHNIQUE: A single AP view of the chest was obtained. COMPARISON: CHEST 06/29/2016 FINDINGS: No focal airspace opacification, pleural effusion or pneumothorax is seen. The cardiomediastinal silhouette is within normal limits for size. The osseous str uctures are unremarkable. IMPRESSION: Unremarkable chest x-ray. RPTAT: HH .Ursula Cardenas MD, Date Time Electronically viewed and signed by .Ursula Cardenas MD, MD on 04/11/2018 12:42 PROCEDURE: CT angiogram brain and neck CLINICAL INDICATION: Code stroke. Neurologic deficit. TECHNIQUE: CT angiogram of the brain, and neck was performed on a multidetector CT scanner. The study was reviewed on a [employer] PACS/3D workstation with 3D- MIP reformations. 100 cc Visipaque 320 intravenous contrast were administered. One or more of the following dose reduction techniques were used: Automated exposure control, adjustment in mA and / or kV according to patient size, use of iterative reconstructive technique. CTDIvol = 17 mGy and DLP = 6/42 mGy-cm. DICOM images are available. COMPARISON: CT brain same date FINDINGS: CT ANGIOGRAM NECK: The origins of the great vessels arising off of the aortic arch are patent. The bilateral common carotid arteries are patent. The bilateral carotid bulbs - bifurcations and internal carotid arteries are patent, without stenosis by NASCET criteria identified. The bilateral vertebral arteries are patent with dominant right vertebral artery noted. No dissection is identified. CT ANGIOGRAM BRAIN: The bilateral internal carotid arteries are patent. The bilateral middle and anterior cerebral arteries appear patent. The bilateral posterior cerebral arteries appear patent with origins noted bilaterally. The basilar artery is small on an anatomic basis but appears patent. The bilateral vertebral arteries appear patent with left vertebral artery primarily terminating as the left posterior inferior cerebellar artery. No aneurysm or arteriovenous malformation is identified. IMPRESSION: No cervical or major vessel intracranial arterial occlusion/stenosis identified. Critical results called to Dr. Calvillo at 12:28 p.m., 04/11/2018. RPTAT: VV .Dale Layton MD, Date Time Electronically viewed and signed by .Dale Layton MD, on 04/11/2018 12:30 Hx of Present Illness 32 yo F with PMH migraines with auras presented to ED after experiencing numbness of left upper and lower extremity as well as face. Patient states it started this am at school and lasted about 20 minutes. She admits to associated dizziness, nausea, and lightheadedness but denies any headaches, LOC, diminished strength, or shortness of breath. Upon arrival to ED, code stroke was called and patient was evaluated by teleneuro. She was dx with complex migraines and given abortive therapy which was effective. However, recommendations for tPA were made if no improvement in symptoms. Patient had CTA head performed that was negative for acute issues. She admits to last migraine was prior to of her child in November 2017. Hospital Course Patient received abortive treatment per Teleneurology recommendations. Symptoms improved significantly but discussion was held with patient about remaining in house for MRI and monitoring for further episodes. Patient was concerned about staying given she did not have enough breast milk for her . Offered pump from OB wing which patient appeared amenable to. Per ED, patient signed herself out Against Medical Advice before transfer to telemetry floor. Home Meds Discontinued Scripts Benzonatate* (Tessalon Perle*) 100 Mg Capsule, 100 MG PO Q8H PRN for COUGH, #30 CAP Prov:ANETA FOWLER PA-C 06/29/16 Azithromycin* (Zithromax*) 250 Mg Tablet, 250 MG PO .ZPACK DIRECTED, #6 TAB TAKE 500 MG (2 TABS) THE FIRST DAY THEN 250 MG (1 TAB) DAYS 2-5 Prov:ANETA FOWLER PA-C 06/29/16 Albuterol Sulfate* (Proair HFA*) 8.5 Gm Hfa.aer.ad, 2 PUFF INH Q4H PRN for WHEEZING AND SOB, #1 INHALER Prov:ANETA FOWLER PA-C 06/29/16 Ibuprofen* (Motrin*) 600 Mg Tab, 600 MG PO Q6, #30 TAB Prov:ANETA FOWLER PA-C 06/29/16 Primary Care Provider Not On Staff Doctor Time spent on discharge: < 30 minutes Pending Labs Laboratory Tests Test 04/11/18 11:10 04/11/18 11:11 04/11/18 11:21 Hemoglobin A1c 5.5 % (0-5.9) Ethyl Alcohol < 10.0 mg/dl (0-0) Level White Blood Count 6.3 10^3/ul (4.8-10.8) Red Blood Count 4.31 10^6/ul (4.20-5.40) Hemoglobin 13.4 g/dl (12.0-16.0) Hematocrit 39.4 % (37.0-47.0) Mean Corpuscular 91.4 Volume fl (82.0-101.0) Mean Corpuscular 31.1 pg (29.0-33.0) Hemoglobin Mean Corpuscular 34.0 Hemoglobin Concent g/dl (32.0-37.0) Red Cell 11.6 % (11.5-14.5) Distribution Width Platelet Count 225 10^3/UL (140-415) Mean Platelet 9.9 fl (7.4-10.4) Volume Immature 0.200 Granulocytes % % (0.001-0.429) Neutrophils % 52.0 % (39.0-77.0) Lymphocytes % 41.1 % (15.0-51.0) Monocytes % 5.5 % (0.0-11.0) Eosinophils % 0.6 % (0.0-7.0) Basophils % 0.6 % (0.0-2.0) Nucleated Red Blood 0.0 Cells % /100WBC (0.0-0.0) Immature 0.010 Granulocytes # 10^3/ul (0.0-0.031) Neutrophils # 3.3 10^3/ul (1.6-7.5) Lymphocytes # 2.6 10^3/ul (0.8-2.9) Monocytes # 0.4 10^3/ul (0.3-0.9) Eosinophils # 0.0 10^3/ul (0.0-0.5) Basophils # 0.0 10^3/ul (0.0-0.1) Nucleated Red Blood 0.0 Cells # 10^3/ul (0.0-0.0) Urine Color STRAW (YELLOW) Urine Clarity CLEAR (CLEAR) Urine pH 6.0 (5.0-9.0) Urine Specific 1.010 (1.003-1.030) [place] Urine Ketones NEGATIVE mg/dL (NEGATIVE) Urine Nitrite NEGATIVE mg/dL (NEGATIVE) Urine Bilirubin NEGATIVE mg/dL (NEGATIVE) Urine Urobilinogen NEGATIVE mg/dL (NEGATIVE) Urine Leukocyte NEGATIVE [place]/ul Esterase Urine Hemoglobin NEGATIVE mg/dL (NEGATIVE) Urine Glucose NEGATIVE mg/dL (NEGATIVE) Urine Total NEGATIVE Protein mg/dl (NEGATIVE) Sodium Level 136 mmol/L (135-144) Potassium Level 3.9 mmol/L (3.5-5.1) Chloride Level 103 mmol/L (97-110) Carbon Dioxide 24 mmol/L (21-31) Level Anion Gap 9 (5-13) Blood Urea 13 mg/dl (7-20) Nitrogen Creatinine 0.48 mg/dl (0.44-1.00) Est Glomerular > 60 mL/min (>60) Filtrat Rate mL/min Glucose Level 129 mg/dl (70-220) Calcium Level 9.1 mg/dl (8.4-10.2) Total Bilirubin 0.4 mg/dl (0.2-1.3) Direct Bilirubin 0.00 mg/dl (0.00-0.20) Indirect Bilirubin 0.4 mg/dl (0-1.1) Aspartate Amino 17 IU/L (15-46) Transf (AST/SGOT) Alanine 18 IU/L (13-69) Aminotransferase (A LT/SGPT) Alkaline 87 IU/L (42-121) Phosphatase Total Protein 7.1 g/dl (6.1-8.1) Albumin 3.9 g/dl (3.3-4.9) Globulin 3.20 g/dl (1.3-3.2) Albumin/Globulin 1.21 Ratio Lipase 56 U/L (23-300) Urine Opiates NEGATIVE (NEGATIVE) Screen Urine Barbiturates NEGATIVE (NEGATIVE) Urine Amphetamines NEGATIVE (NEGATIVE) Screen Urine NEGATIVE (NEGATIVE) Benzodiazepines Screen Urine Cocaine NEGATIVE (NEGATIVE) Screen Urine Cannabinoids NEGATIVE (NEGATIVE) POC Beta HCG, NEGATIVE (NEGATIVE Qualitative ) HOLLI SALAZAR MD Apr 11, 2018 18:08
[2018-04-12] MEDS ORDERED: ENOXAPARIN 40 MG/0.4 ML SYG SC SCH (09:00)
== END 2018-04-11 15:34 | disposition left against medical advice (07) ==
LOC: E/R 10:38 → CANBEDREQ 04-12 19:56
DX: R20.2 Paresthesia of skin (principal); R40.2142 Coma scale, eyes open, spontaneous, at arrival to emergency department; R40.2362 Coma scale, best motor response, obeys commands, at arrival to emergency department; R40.2252 Coma scale, best verbal response, oriented, at arrival to emergency department; G43.411 Hemiplegic migraine, intractable, with status migrainosus; I63.9 Cerebral infarction, unspecified; E66.9 Obesity, unspecified
CPT/HCPCS: 36415; 70450; 70496; 70498; 71045; 80053; 80307; 81003; 81025; 83036; 83690; 85025; 93005; 96374; 96375; 99291; J0780; J1100; J2405; J3475; J7030; Q9967; J1885